=== PATIENT | male | born 1945 | race Caucasian/White ===

== ENCOUNTER 2020-01-22 19:46 | Inpatient (IN) ==
[2020-01-22 20:35] LABS: POC Blood Urea Nitrogen 25 mg/dl (8-23); POC CO2 22 mmol/L (22-30); POC Calcium, Ionized 1.29 mmol/L (1.16-1.32); POC Chloride 108 mmol/L (96-108); POC Glucose, Random 103 mg/dL (70-105); POC Potassium 3.9 mmol/L (3.3-5.1); POC Sodium 142 mmol/L (133-145)
[2020-01-22 20:37] LABS: POC INR 1.1 (0.9-1.2)
[2020-01-22 20:51] LABS: Basophils # (Auto) 0.04 K/mcL (0.00-0.30); Basophils % (Auto) 0.4 % (0.0-2.0); Eosinophils # (Auto) 0.35 K/mcL (0.00-0.70); Eosinophils % (Auto) 3.9 % (0.0-7.0); Granulocytes % (Auto) 73.4 % (38.0-78.0); Hematocrit 36.9 % (40.1-51.0); Hemoglobin 12.3 g/dL (13.7-17.5); Lymphocytes # (Auto) 1.29 K/mcL (1.50-4.80); Lymphocytes % (Auto) 14.4 % (15.5-49.0); Mean Cell Volume 98.1 fL (80.0-100.0); Mean Corpuscular HGB Conc 33.3 g/dL (31.0-36.0); Mean Platelet Volume 9.5 fL (7.4-10.4); Monocytes # (Auto) 0.71 K/mcL (0.10-0.90); Monocytes % (Auto) 7.9 % (1.0-12.0); Platelet Count 202 K/mcL (140-440); RBC 3.76 M/mcL (4.63-6.08); Red Cell Distribution Width 12.4 % (11.5-14.5)
[2020-01-22 21:12] LABS: Chloride 105 mmol/L (96-108)
[2020-01-22 21:16] LABS: ALT/SGPT 22 U/l (0-40); AST/SGOT 24 U/l (0-37); Albumin 3.8 gm/dL (3.2-5.2); Albumin/Globulin Ratio 1.6 (1.0-2.3); Alkaline Phosphatase 91 U/L (39-117); Bilirubin,Total 0.2 mg/dL (0.0-1.0); Blood Urea Nitrogen 23 mg/dl (8-23); Calcium 9.8 mg/dl (8.6-10.4); Carbon Dioxide 21 mmol/L (22-30); Globulin 2.4 gm/dL (2.2-3.7); Glomerular Filtration Rate 34; Glucose 139 mg/dL (70-105)
--- NOTE | 2020-01-22 22:26 | Emergency Department Note ---
Neuro HPI General Chief Complaint: Neuro Symptoms/Deficit Stated Complaint: neurological symptoms/fall Time Seen by Provider: 01/22/20 20:19 Source: patient Mode of arrival: ambulatory Limitations: no limitations History of Present Illness HPI Narrative: Patient describes feeling unstable and dizzy somewhere around 6 hours today. He was told that he looked like he had a droopy eyelid. He fell and it was very difficult to get up including some soreness in his right hand. He was quite weak and unstable. He reports several days ago being seen for similar but his hands seem to be poorly controllable such that his cell phone would easily slide out of his hands and he could hardly touch the keys without putting them on the bed or a firmer surface. He is being worked up/treated for Parkinson's. He reports that it seemed like his right leg is weaker today than usual and this began since he woke up around 5:30 AM. He went to bed around 1030 without this. Later he reports that he has had episodes off and on of his legs being weak particularly his right leg. He uses a walker and often he will use it for 10 to 15 minutes in the morning and then it is better enough that he can go without the walker. Other days he has to use it quite a bit longer. 2 days ago he was seen here because of the hand weakness described above and had labs done then. He admits to some sense of confusion. His mouth is felt dry but he says that he drinks a lot of liquid including 16 ounces of orange juice in the morning a cup of coffee, a glass of milk, toast, and water and soda during the day. He also reports taking ibuprofen 3 in the morning and 3 in the evening ever since his back surgery. On Anticoagulants: Yes Related Data Home Medications Medication Instructions Recorded Confirmed gabapentin 200 mg PO BID 01/22/20 01/22/20 lithium carbonate 450 mg PO BID 01/22/20 01/22/20 methocarbamol 750 mg PO QID 01/22/20 01/22/20 oxycodone 5 mg PO Q6H PRN 01/22/20 01/22/20 Allergies Allergy/AdvReac Type Severity Reaction Status Date / Time No Known Drug Intolerances Allergy Unknown Unverified 01/06/15 17:48 Review of Systems ROS Narrative: No other volunteered abnormalities or problems of major symptoms reported. FOR[facility]LY [facility], [facility] Medical/Surgical/Family History All Active Problems (Updated 01/22/20 @ 22:59 by Brannon Ortiz DO) Chronic low back pain (Acute) Failed back surgical syndrome (Acute) History of TIA (transient ischemic attack) (Acute) Chronic anticoagulation (Chronic) P[place]bl[place] use (Chronic) Bipolar disorder (Chronic) Morbid obesity (Chronic) Hypertension, essential (Chronic) Tremor (Acute) Complaints of weakness of lower extremity (Acute) Fall (Acute) Acute confusion (Acute) Acute renal failure (ARF) (Acute) Edema, peripheral (Chronic) Medical History (Updated 01/22/20 @ 22:59 by Brannon Ortiz DO) Bipolar disorder (Chronic) Chronic anticoagulation (Chronic) clopidogrel Chronic low back pain (Acute) Failed back surgical syndrome (Acute) History of TIA (transient ischemic attack) (Acute) Hypertension, essential (Chronic) [place] use (Chronic) Morbid obesity (Chronic) Surgical History (Updated 01/22/20 @ 22:59 by Brannon Ortiz DO) History of lumbar surgery (Acute) Social History Smoking Status: Never smoker Exam General Limitations: no limitations General appearance: alert, in no apparent distress and nontoxic Head Head: atraumatic and normocephalic Eye Eye: Present EOMI Chest Chest: Present symmetric chest wall rise Respiratory Respiratory: Present normal lung sounds bilaterally; Absent respiratory distress, wheezes, stridor, accessory muscle use and prolonged expiratory phase Cardiovascular Cardiovascular: Present regular rate and normal rhythm; Absent systolic murmur and diastolic murmur Adbominal Abdominal: Present soft; Absent distention, tenderness, guarding, rebound, rigidity, organomegaly and mass Extremities Extremities: Present pedal edema (2-3/4 bilateral) and pretibial edema (2/4 right, 2-3/4 left (more severe).); Absent calf tenderness and cyanosis Neurological Neurological: Present alert, oriented X3 and other (At times he did not always seem to be able to fully answer questions. Was confused some about medications and what they were for.) Psychiatric Psychiatric: Present polite and pleasant; Absent depressed, agitated, anxious and poor eye contact Skin Skin: Present warm and dry Course Vital Signs Vital signs: Vital Signs Temperature 100.1 F H 01/22/20 19:48 Pulse Rate 97 H 01/22/20 19:48 Respiratory Rate 16 01/22/20 19:48 Blood Pressure 125/89 01/22/20 19:48 Pulse Oximetry (%) 97 01/22/20 19:48 Temperature 100.1 F H 01/22/20 19:48 Pulse Rate 82 01/22/20 22:02 Respiratory Rate 17 01/22/20 22:02 Blood Pressure 140/84 01/22/20 22:02 Pulse Oximetry (%) 98 01/22/20 22:02 MDM MDM Narrative Medical decision making narrative: 7:54 PM - patient interviewed and examined. With slow getting the history because of difficulties getting patient to fully explain and not be tangential or distracted or answering different than the content of the question, finally arranged at new onset or increased weakness of the right lower extremity sometime between 1030 last night and 530 this morning necessitating code stroke protocols. CT was read as negative. 8:19 PM - I spoke with Dr. Antony, stroke neurologist, who agrees with no TPA and an MRI is not useful in the circumstances. Patient's clinical scenario is unlikely to demonstrate large vessel thrombus and CT angio than his not of major benefit. An ultrasound would be just as useful and suggest admission for additional stroke work-up and ultrasound. 10:10 PM - creatinine 1.9, 2 days ago 1.6. Hemoglobin 12.3 days, hematocrit 36.9 which is similar. Patient gives the history of some up-and-down weakness, variable to his right lower extremity. He indicates some degrees of confusion. He clarifies his medications to include: * Valsartan * Amlodipine * Clopidogrel * Furosemide * Omeprazole * Oxybutynin * Methocarbamol 750 mg * Gabapentin 200 mg 3 times a day * Oxycodone 5 mg which he takes once or twice daily I believe. * Puebl[place] 450 twice daily for bipolar disorder. * Ibuprofen 600 mg twice daily. 10:40 PM - I just spoke with Dr. Geremias Leon, hospitalist who is agreeable to admit this patient due to the circumstances of probable or possible stroke, patient lives alone and recent fall, confusion, worsening renal function, etc. P[place]bl[place] level added to his labs. Ultrasound of the carotid arteries ordered. Of note is recently had TSH that was normal at 2.63. Lab Data Result diagrams: 01/22/20 20:11 01/22/20 20:25 Labs: Lab Results 06/19/20 06/19/20 06/19/20 Range/Units 20:10 20:11 20:20 WBC 9.0 (4.50-11.00) K/mcL RBC 3.76 L (4.63-6.08) M/mcL Hgb 12.3 L (13.7-17.5) g/dL Hct 36.9 L (40.1-51.0) % POC Hct (41.0-55.0) % MCV 98.1 (80.0-100.0) fL MCH 32.7 (26.0-34.0) pg MCHC 33.3 (31.0-36.0) g/dL RDW 12.4 (11.5-14.5) % Plt Count 202 (140-440) K/mcL MPV 9.5 (7.4-10.4) fL Gran % 73.4 (38.0-78.0) % Lymph % (Auto) 14.4 L (15.5-49.0) % Finney % (Auto) 7.9 (1.0-12.0) % Eos % (Auto) 3.9 (0.0-7.0) % Baso % (Auto) 0.4 (0.0-2.0) % Gran # 6.59 (1.80-8.00) K/mcL Lymph # (Auto) 1.29 L (1.50-4.80) K/mcL Finney # (Auto) 0.71 (0.10-0.90) K/mcL Eos # (Auto) 0.35 (0.00-0.70) K/mcL Baso # (Auto) 0.04 (0.00-0.30) K/mcL POC PT 13.0 (11.9-14.5) sec POC INR 1.1 (0.9-1.2) APTT 31 (20-37) sec POC Sodium (133-145) mmol/L Sodium (133-145) mmol/L POC Potassium (3.3-5.1) mmol/L Potassium (3.3-5.1) mmol/L POC Chloride (96-108) mmol/L Chloride (96-108) mmol/L Carbon Dioxide (22-30) mmol/L POC Total CO2 (22-30) mmol/L Anion Gap (8-16) POC BUN (8-23) mg/dl BUN (8-23) mg/dl Creatinine (0.7-1.2) mg/dl POC Creatinine (0.7-1.2) mg/dl GFR Calculation Glucose (70-105) mg/dL POC Glucose (70-105) mg/dL Calcium (8.6-10.4) mg/dl POC WB Ioniz Calcium (1.16-1.32) mmol/L Total Bilirubin (0.0-1.0) mg/dL AST (0-37) U/l ALT (0-40) U/l Alkaline Phosphatase (39-117) U/L Troponin T < 0.01 (0-0.03) ng/ml Total Protein (5.9-8.4) gm/dL Albumin (3.2-5.2) gm/dL Globulin (2.2-3.7) gm/dL Albumin/Globulin Ratio (1.0-2.3) /19/20 Range/Units 20:25 WBC (4.50-11.00) K/mcL RBC (4.63-6.08) M/mcL Hgb (13.7-17.5) g/dL Hct (40.1-51.0) % POC Hct 35.0 L (41.0-55.0) % MCV (80.0-100.0) fL MCH (26.0-34.0) pg MCHC (31.0-36.0) g/dL RDW (11.5-14.5) % Plt Count (140-440) K/mcL MPV (7.4-10.4) fL Gran % (38.0-78.0) % Lymph % (Auto) (15.5-49.0) % Finney % (Auto) (1.0-12.0) % Eos % (Auto) (0.0-7.0) % Baso % (Auto) (0.0-2.0) % Gran # (1.80-8.00) K/mcL Lymph # (Auto) (1.50-4.80) K/mcL Finney # (Auto) (0.10-0.90) K/mcL Eos # (Auto) (0.00-0.70) K/mcL Baso # (Auto) (0.00-0.30) K/mcL POC PT (11.9-14.5) sec POC INR (0.9-1.2) APTT (20-37) sec POC Sodium 142 (133-145) mmol/L Sodium 136 (133-145) mmol/L POC Potassium 3.9 (3.3-5.1) mmol/L Potassium 4.2 (3.3-5.1) mmol/L POC Chloride 108 (96-108) mmol/L Chloride 105 (96-108) mmol/L Carbon Dioxide 21 L (22-30) mmol/L POC Total CO2 22 (22-30) mmol/L Anion Gap 10.0 (8-16) POC BUN 25 H (8-23) mg/dl BUN 23 (8-23) mg/dl Creatinine 1.9 H (0.7-1.2) mg/dl POC Creatinine 2.0 H (0.7-1.2) mg/dl GFR Calculation 34 Glucose 139 H (70-105) mg/dL POC Glucose 103 (70-105) mg/dL Calcium 9.8 (8.6-10.4) mg/dl POC WB Ioniz Calcium 1.29 (1.16-1.32) mmol/L Total Bilirubin 0.2 (0.0-1.0) mg/dL AST 24 (0-37) U/l ALT 22 (0-40) U/l Alkaline Phosphatase 91 (39-117) U/L Troponin T (0-0.03) ng/ml Total Protein 6.2 (5.9-8.4) gm/dL Albumin 3.8 (3.2-5.2) gm/dL Globulin 2.4 (2.2-3.7) gm/dL Albumin/Globulin Ratio 1.6 (1.0-2.3) Discharge Plan Patient/Caregiver Discharge Instructions Pt seen by [facility] ARCHITECT/PA only: No Clinical Impression: Complaints of weakness of lower extremity, Acute confusion, Edema, peripheral Fall Qualifiers: Encounter type: initial encounter Qualified Code(s): W19.XXXA - Unspecified fall, initial encounter Acute renal failure (ARF) Qualifiers: Acute renal failure type: unspecified Qualified Code(s): N17.9 - Acute kidney failure, unspecified Prescriptions: No Action lithium carbonate 450 mg Tablet Extended Release 450 mg PO BID RF: 0 methocarbamol 750 mg Tablet 750 mg PO QID RF: 0 gabapentin 100 mg Capsule 200 mg PO BID RF: 0 oxycodone 5 mg Tablet 5 mg PO Q6H PRN (Reason: Pain) RF: 0 Follow up with: Hollie Abreu ARNP [Primary Care Provider] - Patient Disposition: Xfer As Inpt ([facility])
[2020-01-22] MEDS ORDERED: LACTATED RINGERS 1,000 ML IV ONE (22:38)
[2020-01-22] MEDS ORDERED: ASPIRIN 325 MG ENTERIC COATED TABLET PO ONE (22:43)
[2020-01-22] MEDS ORDERED: ASPIRIN 81 MG TAB.CHEW CHEWED ONE (22:49)
--- NOTE | 2020-01-22 23:05 | Internal Med History&Physical ---
HPI History of Present Illness Patient information: Note initiated : 01/22/20 at 10:54 pm Service Date, if different from initiated Date: [] Patient: Koby Ayers 74 y/o M admitted on for neurological symptoms/fall. Chief Complaint: [] History of present illness: Mr. Ayers is a 74 year old M Presents the ED with generalized weakness and also worsening weakness of his right lower extremity. He is felt a little confused. His friend told him his left eyelid was droopy and at one point he was not making sense and he stopped to think if did relay that he was jumbling his words. He felt foggy. He fell at one point. [place] a little unsteady on his feet. Very difficult to for him to get up when he fell. Currently is being worked up for Parkinson's has appointment with a neurologist but has not seen Dr. Mason yet. Last felt normal was last night. Symptoms have been going on for about 24 hours. Does use a walker at home. CT brain was unremarkable. Dates as discussed with stroke neurologist Dr. Paul mueller from [place]. Recommendations only for carotid ultrasound and echocardiogram. And patient did have a high ABCD score and acute kidney injury and thus admission was requested. Review of Systems: Pertinent positives above. Denies headache/fever/chills/nausea/vomiting/chest or abdominal pain/cough/dyspnea/diarrhea. 10 point review of system reviewed negative Medical history: Tremor (ICD-781.0) (ZUE15-I16.1) Cough (ICD-786.2) (SGB42-O86) Body mass index (BMI) 40.0-44.9, adult (ICD-V85.41) (YVG27-E20.41) Morbid (severe) obesity due to excess calories (ICD-278.01) (MMZ05-S93.01) Depression, initial episode (ICD-311) (ZGO60-H59.9) Blurring of visual image (ICD-368.8) (TTU75-Q41.8) Low back pain, chronic (ICD-724.2) (MLL93-A30.5) Plantar fasciitis, right (ICD-728.71) (CRJ30-P89.2) Plantar fasciitis, left (ICD-728.71) (JIQ22-R94.2) Equinus contracture of the ankle (ICD-718.47) (VNG31-W58.573) Equinus deformity of foot, acquired (ICD-736.72) (OKT04-Z83.6x9) Calcaneal spur of right foot (ICD-726.73) (VIY46-C21.31) Osteoarthritis (ICD-715.90) (TSA45-Q22.90) Other instability, right foot (ICD-718.87) (ABO78-X51.374) Lower extremity edema (ICD-782.3) (FFV41-Q70.0) Obesity (ICD-278.00) (TFB00-B76.9) RESTLESS LEG SYNDROME (ICD-333.94) (QDR53-R86.81) Arthritis (ICD-716.90) (DKS46-D70.90) Renal insufficiency, chronic (ICD-585.9) (KUP57-Q26.9) Hyperglycemia (ICD-790.29) (GUZ31-C55.9) HYPERTENSION (ICD-401.9) (BKP09-A69) BLADDER DYSFUNCTION (ICD-596.59) (OWR71-J84.9) INSOMNIA (ICD-780.52) (MER24-J48.00) DISORDER, BIPOLAR NEC (ICD-296.89) (MSF07-D59.81) ADENOCARCINOMA, PROSTATE (ICD-185) (UOU86-O35) SLEEP APNEA (ICD-780.57) (JXE78-W58.30) IBS (ICD-564.1) (RBT95-X42.9) Pterygium, bilateral (ICD-372.40) (ODF98-B19.003) Peripheral edema Past surgical history: Prostate surgery Lumbar surgery Cholecystectomy Total knee arthroplasty Shoulder surgery Family history Mother had jaw cancer Father had cancer Social history: Patient denies tobacco or alcohol Ambulates with walker Lives by himself [facility] Medical History (Updated 01/22/20 @ 22:59 by Brannon Ortiz DO) Bipolar disorder (Chronic) Chronic anticoagulation (Chronic) clopidogrel Chronic low back pain (Acute) Failed back surgical syndrome (Acute) History of TIA (transient ischemic attack) (Acute) Hypertension, essential (Chronic) [facility] use (Chronic) Morbid obesity (Chronic) Surgical History (Updated 06/19/20 @ 22:59 by Brannon Ortiz DO) History of lumbar surgery (Acute) Social History smoking status: Never smoker MEDS/ALLERGIES Home Medications and Allergies Home Medications Medication Instructions Recorded Confirmed Type gabapentin 200 mg PO BID 01/22/20 01/22/20 History lithium carbonate 450 mg PO BID 01/22/20 01/22/20 History methocarbamol 750 mg PO QID 01/22/20 01/22/20 History oxycodone 5 mg PO Q6H PRN 01/22/20 01/22/20 History Allergies Allergy/AdvReac Type Severity Reaction Status Date / Time No Known Drug Intolerances Allergy Unknown Unverified 01/06/15 17:48 EXAM Constitutional Vitals: Temp Pulse Resp BP Pulse Ox 100.1 F H 82 17 140/84 98 01/22/20 19:48 01/22/20 22:02 01/22/20 22:02 01/22/20 22:02 01/22/20 22:02 Exam: General: Alert, Awake, No acute Distress, obese Eyes/N/T: EOMI, PERRL, dry MM Head/Neck: neck supple, normocephalic atraumatic CV: RRR, No murmurs, normal s1/s2 Pulm: Clear b/l, no wheezing/rhonchi/rales Abd: soft, nontender, +BS x4 Ext: no clubbing/cyanosis, b/l LE 3+ Neuro: Alert, RLE weaker than left but chronic also, CN 2-12 grossly intact, sensations intact b/l upper/lower, no pronator drift, face symmetrical, speech clear Skin: warm/dry DATA Data Completed and Pending Labs on day of discharge: Labs from last 24 hours 01/22/20 01/22/20 01/22/20 20:25 20:25 20:20 WBC RBC Hgb Hct POC Hct 35.0 L MCV MCH MCHC RDW Plt Count MPV Gran % Lymph % (Auto) Gage % (Auto) Eos % (Auto) Baso % (Auto) Gran # Lymph # (Auto) Gage # (Auto) Eos # (Auto) Baso # (Auto) POC PT 13.0 POC INR 1.1 APTT 31 POC Sodium 142 Sodium 136 POC Potassium 3.9 Potassium 4.2 POC Chloride 108 Chloride 105 Carbon Dioxide 21 L POC Total CO2 22 Anion Gap 10.0 POC BUN 25 H BUN 23 Creatinine 1.9 H POC Creatinine 2.0 H GFR Calculation 34 Glucose 139 H POC Glucose 103 Calcium 9.8 POC WB Ioniz Calcium 1.29 Total Bilirubin 0.2 AST 24 ALT 22 Alkaline Phosphatase 91 Troponin T Total Protein 6.2 Albumin 3.8 Globulin 2.4 Albumin/Globulin Ratio 1.6 [facility] Pending 01/22/20 01/22/20 20:11 20:10 WBC 9.0 RBC 3.76 L Hgb 12.3 L Hct 36.9 L POC Hct MCV 98.1 MCH 32.7 MCHC 33.3 RDW 12.4 Plt Count 202 MPV 9.5 Gran % 73.4 Lymph % (Auto) 14.4 L Gage % (Auto) 7.9 Eos % (Auto) 3.9 Baso % (Auto) 0.4 Gran # 6.59 Lymph # (Auto) 1.29 L Gage # (Auto) 0.71 Eos # (Auto) 0.35 Baso # (Auto) 0.04 POC PT POC INR APTT POC Sodium Sodium POC Potassium Potassium POC Chloride Chloride Carbon Dioxide POC Total CO2 Anion Gap POC BUN BUN Creatinine POC Creatinine GFR Calculation Glucose POC Glucose Calcium POC WB Ioniz Calcium Total Bilirubin AST ALT Alkaline Phosphatase Troponin T < 0.01 Total Protein Albumin Globulin Albumin/Globulin Ratio [facility] A/P Narrative A/P Narrative: A: *TIA vs: -ABCD=5 -CT brain neg *BRIT on CKD II: *Depression/bipolar: On lithium and duloxetine *JUSTINE with CPAP: *Obesity: *HTN: *Peripheral edema: *Chronic low back pain * * P: -IVF, follow-up renal function -Plavix/Statin -Carotid ultrasound and echocardiogram pending -Check lithium level -Hold Lasix and ARB for BRIT -Clarify home medications and update system -lipid panel -Compression wraps and elevate legs -CPAP - -f/u with neurologist as scheduled -PT/OT -ppx: Lovenox/home PPI DNR Time Spent With Patient Time: Total time spent is greater than 50% in coordination of care (as documented) at patient's floor/unit and/or counseling patient:
[2020-01-22 23:13] LABS: Lithium Test 0.9 mmol/L
[2020-01-23] MEDS ORDERED: POLYETHYLENE GLYCOL 3350 17 GM PACKET PO PRN (00:04)
[2020-01-23] MEDS ORDERED: 0.9 % SODIUM CHLORIDE 1,000 ML IV SCH ×2 (00:04→08:15)
[2020-01-23] MEDS ORDERED: POTASSIUM CHLORIDE 40 MEQ in DEXTROSE 5% IN WATER 500 ML IV PRN (00:04)
[2020-01-23] MEDS ORDERED: IPRATROPIUM/ALBUTEROL 3 ML AMPUL.NEB NEB PRN (00:04)
[2020-01-23] MEDS ORDERED: SENNOSIDES 1 TABLET PO PRN (00:04)
[2020-01-23] MEDS ORDERED: MAGNESIUM SULFATE 2 GM/50 ML BAG IV PRN (00:04)
[2020-01-23] MEDS ORDERED: ACETAMINOPHEN 325 MG TABLET PO PRN (00:04)
[2020-01-23] MEDS ORDERED: ONDANSETRON 4 MG/2 ML VIAL IV PRN (00:04)
[2020-01-23] MEDS ORDERED: POTASSIUM CHLORIDE 20 MEQ TABLET PO PRN ×2 (00:04)
[2020-01-23] MEDS ORDERED: PROMETHAZINE 25 MG/ML VIAL IV PRN (00:04)
[2020-01-23 01:37] LABS: HDL Cholesterol 41 mg/dl (>40); LDL Cholesterol,Calculated 98 mg/dl (SEE CHART); Non-HDL Cholesterol 129 (LDL TARGET+30); Triglycerides 157 mg/dl (<150)
[2020-01-23 04:10] LABS: Appearance,Urine CLEAR; Bilirubin,Urine NEG (NEG); Color,Urine COLORLESS; Culture Indicated,Urine NO; Glucose,Urine (UA) NEGATIVE (NEG); Ketones,Urine NEG (NEG); Leukocyte Esterase,Urine NEG /uL (NEG); Nitrate,Urine NEG (NEG); Protein,Urine NEG (NEG); Specific Gravity,Urine 1.005 (1.000-1.035); Urine Blood NEG mg/dL (<0.03); Urobilinogen,Urine NEG (NEG)
[2020-01-23] MEDS ORDERED: ONDANSETRON 4 MG/2 ML VIAL ONE (05:28)
--- NOTE | 2020-01-23 05:38 | Ultrasound Report ---
INDICATION: TIA symptoms COMPARISON: None. TECHNIQUE: Carotid arteries were imaged in sagittal and transverse planes using 5 mHz linear probe: Doppler, color, and 2D. FINDINGS: Mild atherosclerotic plaque and intimal thickening in the distal common carotid artery and proximal internal carotid artery bilaterally. Plaque is heterogeneous. No evidence for ulceration. No flow disturbance. No significant turbulence or velocity elevation. There is no stenosis. Maximum Systolic Flow Velocity: - Right common carotid artery: 70 cm/sec - Right internal carotid artery: 88 cm/sec - Left common carotid artery: 85 cm/sec - Left internal carotid artery: 103 cm/sec Vertebral arteries antegrade patent. IMPRESSION: 1. Mild bilateral atherosclerotic plaque without flow disturbance 2. No hemodynamically significant stenosis. No evidence for ulceration Interpreted and Authenticated by: Kody Gallardo 01/23/20
--- NOTE | 2020-01-23 05:40 | Cat Scan Report ---
INDICATION: Neuro Deficit/acute stroke COMPARISON: None. TECHNIQUE: Axial noncontrast-enhanced images through the brain. Sagittally and coronally reformatted images. FINDINGS: Examination was initially interpreted by [facility] Cerebral hemispheres:Negative. No intra-axial abnormality. No intra-axial hematoma. No localized mass effect. Brain volume is within normal limits. No hydrocephalus Brainstem and cerebellum:No intra-axial abnormality Extra-axial:No acute hemorrhage. No subdural or epidural hematoma. No subarachnoid hemorrhage. Basilar cisterns are normal Calvarial:No calvarial fracture. No lytic lesion Temporal bones are negative. No destructive lesions Soft tissue:Orbits and visualized facial soft tissues are grossly normal. IMPRESSION: Negative noncontrast enhanced brain CT scan The exam was performed using radiation dose optimization techniques including, but not limited to, automated exposure control, adjustment of the mA and/or kV according to patient size and use of iterative reconstruction technique. Interpreted and Authenticated by: Kody Gallardo 01/23/20
[2020-01-23] MEDS: 0.9 % SODIUM CHLORIDE 10 ML SYRINGE IV SCH ×3 (05:52→21:22)
[2020-01-23 06:52] LABS: Basophils # (Auto) 0.05 K/mcL (0.00-0.30); Basophils % (Auto) 0.7 % (0.0-2.0); Eosinophils # (Auto) 0.39 K/mcL (0.00-0.70); Eosinophils % (Auto) 5.2 % (0.0-7.0); Granulocytes % (Auto) 66.7 % (38.0-78.0); Hemoglobin 12.1 g/dL (13.7-17.5); Lymphocytes % (Auto) 18.8 % (15.5-49.0); Mean Cell Volume 99.2 fL (80.0-100.0); Mean Corpuscular HGB Conc 32.7 g/dL (31.0-36.0); Mean Platelet Volume 9.3 fL (7.4-10.4); Monocytes # (Auto) 0.64 K/mcL (0.10-0.90); Monocytes % (Auto) 8.6 % (1.0-12.0); Platelet Count 191 K/mcL (140-440); RBC 3.73 M/mcL (4.63-6.08); Red Cell Distribution Width 12.3 % (11.5-14.5); WBC 7.4 K/mcL (4.50-11.00)
[2020-01-23 07:25] LABS: ALT/SGPT 20 U/l (0-40); AST/SGOT 19 U/l (0-37); Albumin 3.4 gm/dL (3.2-5.2); Albumin/Globulin Ratio 1.3 (1.0-2.3); Alkaline Phosphatase 83 U/L (39-117); Bilirubin,Direct < 0.2 mg/dL (0.0-0.3); Bilirubin,Total 0.3 mg/dL (0.0-1.0); Blood Urea Nitrogen 20 mg/dl (8-23); Calcium 10.3 mg/dl (8.6-10.4); Carbon Dioxide 24 mmol/L (22-30); Globulin 2.6 gm/dL (2.2-3.7); Glomerular Filtration Rate 39; Glucose 102 mg/dL (70-105); Lactate Dehydrogenase 150 U/L (94-250); Phosphorous 2.8 mg/dL (2.7-4.5); Triglycerides 119 mg/dl (<150); Uric Acid 6.5 mg/dL (2.5-8.0)
[2020-01-23 07:30] LABS: Chloride 111 mmol/L (96-108)
[2020-01-23] MEDS: PANTOPRAZOLE 40 MG TABLET PO SCH (08:00)
--- NOTE | 2020-01-23 08:08 | Internal Med Progress Note ---
SUBJECTIVE Subjective Patient information: Note initiated : 01/23/20 at 8:01 am Service Date, if different from initiated Date: [] Patient: Koby Ayers 74 y/o M admitted on 01/22/20 for neurological symptoms/fall. Chief Complaint: [] History of present illness: Mr. Ayers is a 74 year old M Presents the ED with generalized weakness and also worsening weakness of his right lower extremity. He is felt a little confused. His friend told him his left eyelid was droopy and at one point he was not making sense and he stopped to think if did relay that he was jumbling his words. He felt foggy. He fell at one point. [place] a little unsteady on his feet. Very difficult to for him to get up when he fell. Currently is being worked up for Parkinson's has appointment with a neurologist but has not seen Dr. Mason yet. Last felt normal was last night. Symptoms have been going on for about 24 hours. Does use a walker at home. CT brain was unremarkable. Dates as discussed with stroke neurologist Dr. Paul mueller from [place]. Recommendations only for carotid ultrasound and echocardiogram. And patient did have a high ABCD score and acute kidney injury and thus admission was requested. 01/22 Poor sleep first night. Constipation. Creatinine mildly decreased. Patient does feel his leg weakness is better. Blood pressure elevated overnight. Allow permissive elevation given likely TIA. Review of Systems: denies headache/fever/chills/nausea/vomiting/chest or abdominal pain/c ough/dyspnea/diarrhea. Otherwise see above. Constitutional Vitals: Vital Signs Temp Pulse Resp BP Pulse Ox 98.7 F 80 18 180/109 95 01/23/20 04:01 01/23/20 04:01 01/23/20 04:01 01/23/20 04:01 01/23/20 07:33 Period Temp Pulse Resp BP Sys/Coker Pulse Ox Last 24 Hr 97.8 F-100.1 F 78-97 10-34 116-180/79-114 93-100 Intake and Output 01/22/20 01/23/20 01/23/20 21:59 05:59 13:59 Intake Total 1000 Output Total 2300 700 Balance -1300 -700 Weight 131.542 kg 131.542 kg Intake & Output: Intake & Output 01/22/20 01/23/20 01/23/20 21:59 05:59 13:59 Intake Total 1000 Output Total 2300 700 Balance -1300 -700 Weight 131.542 kg 131.542 kg Intake: IV 1000 Lactated Ringers 1,000 ml @ 1000 Wide Open IV BOLUS ONE Rx#: [id number] Output: Void Amount 2300 700 Exam: Exam: General: Alert, Awake, No acute Distress, obese Eyes/N/T: EOMI, Head/Neck: neck supple, CV: RRR, No murmurs, Pulm: Clear b/l, no wheezing/rhonchi/rales Abd: soft, nontender, +BS x4 Ext: no clubbing/cyanosis, b/l LE 3+ Neuro: Alert, RLE weaker than left but chronic also, no pronator drift, face symmetrical, speech clear Skin: warm/dry OBJ DATA Labs CBC & Chem 7: 01/23/20 04:59 01/23/20 04:59 Labs: Abnormal Lab Results 01/23/20 01/23/20 01/22/20 04:59 04:59 20:25 RBC 3.73 L Hgb 12.1 L Hct 37.0 L POC Hct Lymph % (Auto) Lymph # (Auto) 1.40 L Chloride 111 H Carbon Dioxide POC BUN Creatinine 1.7 H POC Creatinine Glucose Triglycerides 157 H 01/22/20 01/22/20 20:25 20:11 RBC 3.76 L Hgb 12.3 L Hct 36.9 L POC Hct 35.0 L Lymph % (Auto) 14.4 L Lymph # (Auto) 1.29 L Chloride Carbon Dioxide 21 L POC BUN 25 H Creatinine 1.9 H POC Creatinine 2.0 H Glucose 139 H Triglycerides Meds: Medications Acetaminophen (Tylenol) 650 mg PO Q6HP PRN PRN Reason: PAIN/FEVER > 101 Albuterol/Ipratropium (Duoneb) 3 ml NEB Q4HP PRN PRN Reason: Shortness Of Breath Aspirin (Aspirin) 81 mg CHEWED DAILY [facility] Atorvastatin Calcium (Lipitor) 80 mg PO HS [facility] Clopidogrel Bisulfate (Plavix) 75 mg PO DAILY [facility] Docusate Sodium (Colace) 100 mg PO BID [facility] Enoxaparin Sodium (Lovenox) 40 mg SQ DAILY [facility] Gabapentin (Neurontin) 200 mg PO BID [facility] Potassium Chloride 40 meq/ (Dextrose) 520 mls @ 130 mls/hr IV UD PRN PRN Reason: Potassium < 3 Magnesium Sulfate (Magnesium Sulfate) 2 gm in 50 mls @ 50 mls/hr IV UD PRN PRN Reason: Magnesium </= 1.6 Sodium Chloride (Sodium Chloride 0.9%) 1,000 mls @ 75 mls/hr IV .[id number] [facility] Stop: 01/23/20 13:23 Last Admin: 01/23/20 00:44 Dose: 75 mls/hr Documented by: [place] Carbonate (Eskalith Cr) 450 mg PO BID [facility] Methocarbamol (Robaxin) 750 mg PO QIDP PRN PRN Reason: spas Ondansetron HCl (Zofran) 4 mg IV Q4HP PRN PRN Reason: Nausea And Vomiting Oxycodone HCl (Roxicodone) 5 mg PO Q6HP PRN; Protocol PRN Reason: Pain Pantoprazole Sodium (Protonix) 40 mg PO QAMAC [facility] Polyethylene Glycol (Miralax) 17 gm PO DAILYP PRN PRN Reason: Constipation Potassium Chloride (Kdur) 40 meq PO UD PRN PRN Reason: Potssium is 3-3.5 Potassium Chloride (Kdur) 40 meq PO UD PRN PRN Reason: Potassium < 3 Promethazine HCl (Phenergan) 12.5 mg IV Q6HP PRN PRN Reason: Nausea And Vomiting Senna (Senokot) 2 tab PO DAILYP PRN PRN Reason: Constipation Sodium Chloride (Saline Flush) 10 ml IV Q8 [facility] Last Admin: 01/23/20 05:52 Dose: Not Given Documented by: A/P Narrative A/P Narrative: A: *TIA/CVA: with acute on chronic right leg weakness (better)/confusion(better) -ABCD=5 -CT brain neg, tele sinus -carotid u/s no significant stenosis *Analyzed weakness/falls/deconditioning: *BRIT on CKD II: -slowly improving *Depression/bipolar: On lithium and duloxetine -lithum wnl *JUSTINE with CPAP: *Obesity: *HTN: *Peripheral edema, chronic: *Chronic low back pain * P: -IVF today, follow-up renal function -Plavix/Statin -echocardiogram pending -Hold Lasix and ARB for BRIT -Clarify home medications and update system -Compression wraps and elevate legs -CPAP - -f/u with neurologist as scheduled -PT/OT -may need SNF upon d/c -ppx: Lovenox/home PPI DNR Time Spent With Patient Time: Total time spent is greater than 50% in coordination of care (as documented) at patient's floor/unit and/or counseling patient: QUALITY VTE Deep Vein Thrombosis/Pulmonary Embolism Present on Admission: No
[2020-01-23] MEDS ORDERED: ASPIRIN 81 MG TAB.CHEW CHEWED SCH (09:00)
[2020-01-23] MEDS ORDERED: LABETALOL 5 MG/ML ML IV PRN (09:12)
[2020-01-23] MEDS: oxyCODONE HCL 5 MG TABLET PO PRN ×3 (09:45→21:22)
[2020-01-23] MEDS: ENOXAPARIN 40 MG/0.4 ML SYRINGE SQ SCH (09:45)
[2020-01-23] MEDS: GABAPENTIN 100 MG CAPSULE PO SCH ×2 (09:45→21:22)
[2020-01-23] MEDS: METHOCARBAMOL 750 MG TABLET PO PRN ×3 (09:45→21:22)
[2020-01-23] MEDS: CLOPIDOGREL 75 MG TABLET PO SCH (09:45)
--- NOTE | 2020-01-23 09:59 | Discharge Summary ---
Discharge Provider Provider Patient information: Note initiated : 01/23/20 at 9:57 am Service Date, if different from initiated Date: [] Patient: Kboy Ayers 74 y/o M admitted on 01/22/20 for neurological symptoms/fall. Chief Complaint: [] Date of admission: 01/22/20 23:44 Discharge date: 01/24/20 Primary care physician: Hollie Abreu Consults: 01/22/20 Consult to Physician [CONS] Stat Comment: Consulting Provider: Geremias Leon Reason For Exam: Physician to Consult Discharge Meds Discharge Medications Active and Home Medications: Home Medications gabapentin 200 mg PO BID 01/22/20 [History Confirmed 01/22/20 Last Taken Unknown] lithium carbonate 450 mg PO BID 01/22/20 [History Confirmed 01/22/20 Last Taken Unknown] methocarbamol 750 mg PO QID 01/22/20 [History Confirmed 01/22/20 Last Taken Unknown] oxycodone 5 mg PO Q6H PRN 01/22/20 [History Confirmed 01/22/20 Last Taken Unknown] COURSE Hospital Course Hospital Course: History of present illness: Mr. Ayers is a 74 year old M Presents the ED with generalized weakness and also worsening weakness of his right lower extremity. He is felt a little confused. His friend told him his left eyelid was droopy and at one point he was not making sense and he stopped to think if did relay that he was jumbling his words. He felt foggy. He fell at one point. [place] a little unsteady on his feet. Very difficult to for him to get up when he fell. Currently is being worked up for Parkinson's has appointment with a neurologist but has not seen Dr. Mason yet. Last felt normal was last night. Symptoms have been going on for about 24 hours. Does use a walker at home. CT brain was unremarkable. Dates as discussed with stroke neurologist Dr. Paul mueller from [place]. Recommendations only for carotid ultrasound and echocardiogram. And patient did have a high ABCD score and acute kidney injury and thus admission was requested. 01/22 Poor sleep first night. Constipation. Creatinine mildly decreased. Patient does feel his leg weakness is better. Blood pressure elevated overnight. Allow permissive elevation given likely TIA. 01/23 No new complaints overnight events. Patient wanting to discharge. Blood pressure stable. Renal function improved. A/P *TIA/CVA: with acute on chronic right leg weakness (better)/confusion(better) -ABCD=5 -CT brain neg, tele sinus -carotid u/s no significant stenosis -was supposed to f/u with Dr. Mason for parkinson's eval also *Analyzed weakness/falls/deconditioning: *BRIT on CKD II: -slowly improving *Depression/bipolar: On lithium and duloxetine -lithum wnl *JUSTINE with CPAP: *Obesity: *HTN: *Peripheral edema, chronic: *Chronic low back pain Discharge diagnosis: TIA acute kidney injury underlies weakness Secondary discharge diagnosis: Depression bipolar obstructive sleep apnea obesity hypertension peripheral edema chronic low back pain Time Spent with Patient Time attestation: Total time spent providing and/or coordinating discharge servi castro: Time spent: Greater than 30 minutes EXAM Constitutional Vitals: Temp Pulse Resp BP Pulse Ox 98.7 F 80 18 180/109 95 01/23/20 04:01 01/23/20 04:01 01/23/20 04:01 01/23/20 04:01 01/23/20 07:33 Discharge Data Data Completed and Pending Labs on day of discharge: Labs from last 24 hours 01/23/20 01/23/20 01/23/20 04:59 04:59 03:14 WBC 7.4 RBC 3.73 L Hgb 12.1 L Hct 37.0 L POC Hct MCV 99.2 MCH 32.4 MCHC 32.7 RDW 12.3 Plt Count 191 MPV 9.3 Gran % 66.7 Lymph % (Auto) 18.8 [place] % (Auto) 8.6 Eos % (Auto) 5.2 Baso % (Auto) 0.7 Gran # 4.95 Lymph # (Auto) 1.40 L [place] # (Auto) 0.64 Eos # (Auto) 0.39 Baso # (Auto) 0.05 POC PT POC INR APTT POC Sodium Sodium 143 POC Potassium Potassium 3.9 POC Chloride Chloride 111 H Carbon Dioxide 24 POC Total CO2 Anion Gap 8.0 POC BUN BUN 20 Creatinine 1.7 H POC Creatinine GFR Calculation 39 Glucose 102 POC Glucose Uric Acid 6.5 Calcium 10.3 POC WB Ioniz Calcium Phosphorus 2.8 Magnesium 2.5 Total Bilirubin 0.3 Direct Bilirubin < 0.2 GGT 13 AST 19 ALT 20 Alkaline Phosphatase 83 Lactate Dehydrogenase 150 Troponin T Total Protein 6.0 Albumin 3.4 Globulin 2.6 Albumin/Globulin Ratio 1.3 Triglycerides 119 Cholesterol LDL Cholesterol, Calc Non-HDL Cholesterol HDL Cholesterol Urine Color Colorless Urine Appearance Clear Urine pH 7.0 Ur Specific [place] 1.005 Urine Protein Neg Urine Glucose (UA) Negative Urine Ketones Neg Urine Occult Blood Neg Urine Nitrate Neg Urine Bilirubin Neg Urine Urobilinogen Neg Ur Leukocyte Esterase Neg Ur Culture Indicated? No [place] 01/22/20 01/22/20 01/22/20 20:25 20:25 20:25 WBC RBC Hgb Hct POC Hct 35.0 L MCV MCH MCHC RDW Plt Count MPV Gran % Lymph % (Auto) [place] % (Auto) Eos % (Auto) Baso % (Auto) Gran # Lymph # (Auto) [place] # (Auto) Eos # (Auto) Baso # (Auto) POC PT POC INR APTT POC Sodium 142 Sodium 136 POC Potassium 3.9 Potassium 4.2 POC Chloride 108 Chloride 105 Carbon Dioxide 21 L POC Total CO2 22 Anion Gap 10.0 POC BUN 25 H BUN 23 Creatinine 1.9 H POC Creatinine 2.0 H GFR Calculation 34 Glucose 139 H POC Glucose 103 Uric Acid Calcium 9.8 POC WB Ioniz Calcium 1.29 Phosphorus Magnesium Total Bilirubin 0.2 Direct Bilirubin GGT AST 24 ALT 22 Alkaline Phosphatase 91 Lactate Dehydrogenase Troponin T Total Protein 6.2 Albumin 3.8 Globulin 2.4 Albumin/Globulin Ratio 1.6 Triglycerides 157 H Cholesterol 170 LDL Cholesterol, Calc 98 Non-HDL Cholesterol 129 HDL Cholesterol 41 Urine Color Urine Appearance Urine pH Ur Specific [place] Urine Protein Urine Glucose (UA) Urine Ketones Urine Occult Blood Urine Nitrate Urine Bilirubin Urine Urobilinogen Ur Leukocyte Esterase Ur Culture Indicated? [place] 0.9 01/22/20 01/22/20 01/22/20 20:20 20:11 20:10 WBC 9.0 RBC 3.76 L Hgb 12.3 L Hct 36.9 L POC Hct MCV 98.1 MCH 32.7 MCHC 33.3 RDW 12.4 Plt Count 202 MPV 9.5 Gran % 73.4 Lymph % (Auto) 14.4 L [place] % (Auto) 7.9 Eos % (Auto) 3.9 Baso % (Auto) 0.4 Gran # 6.59 Lymph # (Auto) 1.29 L [place] # (Auto) 0.71 Eos # (Auto) 0.35 Baso # (Auto) 0.04 POC PT 13.0 POC INR 1.1 APTT 31 POC Sodium Sodium POC Potassium Potassium POC Chloride Chloride Carbon Dioxide POC Total CO2 Anion Gap POC BUN BUN Creatinine POC Creatinine GFR Calculation Glucose POC Glucose Uric Acid Calcium POC WB Ioniz Calcium Phosphorus Magnesium Total Bilirubin Direct Bilirubin GGT AST ALT Alkaline Phosphatase Lactate Dehydrogenase Troponin T < 0.01 Total Protein Albumin Globulin Albumin/Globulin Ratio Triglycerides Cholesterol LDL Cholesterol, Calc Non-HDL Cholesterol HDL Cholesterol Urine Color Urine Appearance Urine pH Ur Specific [place] Urine Protein Urine Glucose (UA) Urine Ketones Urine Occult Blood Urine Nitrate Urine Bilirubin Urine Urobilinogen Ur Leukocyte Esterase Ur Culture Indicated? [place] Discharge Plan Patient/Caregiver Discharge Instructions Activity: as per physical therapy Diet: Cardiac Prescriptions: New atorvastatin 40 mg Tablet 20 mg PO HS Qty: 30 RF: 0 clopidogrel 75 mg Tablet 75 mg PO DAILY Qty: 30 RF: 0 Continued lithium carbonate 450 mg Tablet Extended Release 450 mg PO BID RF: 0 methocarbamol 750 mg Tablet 750 mg PO QID RF: 0 gabapentin 100 mg Capsule 200 mg PO BID RF: 0 oxycodone 5 mg Tablet 5 mg PO Q6H PRN (Reason: Pain) RF: 0 No Action oxybutynin chloride 15 mg Tablet Extended Release 24hr 15 mg PO QDAY RF: 0 omeprazole 40 mg Capsule,Delayed Release(Dr/Ec) 40 mg PO QDAY RF: 0 trazodone 100 mg Tablet 50 mg PO HSP PRN (Reason: Insomnia) RF: 0 amlodipine 10 mg Tablet 5 mg PO QDAY RF: 0 valsartan 320 mg Tablet 320 mg PO QDAY RF: 0 furosemide 20 mg Tablet 20 mg PO QDAY PRN (Reason: Edema) RF: 0 duloxetine 60 mg Capsule,Delayed Release(Dr/Ec) 60 mg PO QHS RF: 0 Follow Up Plan Follow up with: Hollie Abreu ARNP [Primary Care Provider] - Gabriel Mason MD [Physician] - (for TIA, but was also supposed to f/u for parkinson's evaluation) Patient Disposition: Xfer SNF Prognosis: Fair Rehab Potential: Fair I certify that the patient requires SNF services: Yes Overall status at discharge: patient is progressing back to baseline Discharge Orders: Discharge Order (Routine); Ordered 01/24/20 Ordered By: Geremias Leon [facility] VTE Deep Vein Thrombosis/Pulmonary Embolism Present on Admission: No
[2020-01-23] MEDS: DOCUSATE SODIUM 100 MG CAPSULE PO SCH ×2 (12:08→21:22)
[2020-01-23] MEDS: LITHIUM CARBONATE 450 MG TAB.SR.12H PO SCH ×2 (12:09→21:22)
[2020-01-23] MEDS ORDERED: ATORVASTATIN 40 MG TABLET PO SCH (21:00)
[2020-01-24] MEDS: METHOCARBAMOL 750 MG TABLET PO PRN ×2 (02:44→08:36)
[2020-01-24] MEDS: oxyCODONE HCL 5 MG TABLET PO PRN ×2 (02:45→08:36)
[2020-01-24] MEDS: 0.9 % SODIUM CHLORIDE 10 ML SYRINGE IV SCH (05:46)
[2020-01-24 06:33] LABS: Blood Urea Nitrogen 15 mg/dl (8-23); Calcium 10.1 mg/dl (8.6-10.4); Carbon Dioxide 23 mmol/L (22-30); Glomerular Filtration Rate 50; Glucose 116 mg/dL (70-105)
[2020-01-24 06:34] LABS: Chloride 114 mmol/L (96-108)
[2020-01-24] MEDS: PANTOPRAZOLE 40 MG TABLET PO SCH (07:21)
[2020-01-24] MEDS: GABAPENTIN 100 MG CAPSULE PO SCH (08:36)
[2020-01-24] MEDS: ENOXAPARIN 40 MG/0.4 ML SYRINGE SQ SCH (08:36)
[2020-01-24] MEDS: DOCUSATE SODIUM 100 MG CAPSULE PO SCH (08:36)
[2020-01-24] MEDS: CLOPIDOGREL 75 MG TABLET PO SCH (08:36)
[2020-01-24] MEDS: LITHIUM CARBONATE 450 MG TAB.SR.12H PO SCH (08:37)
[2020-01-24] MEDS ORDERED: amLODIPine 5 MG TABLET PO SCH (09:00)
[2020-01-24] MEDS ORDERED: NON FORMULARY MEDICATION 1 DOSE MISCELL (Omeprazole 40 MG) PO SCH (09:00)
[2020-01-24] MEDS ORDERED: OXYBUTYNIN CHLORIDE 5 MG TABLET PO SCH (09:00)
[2020-01-24] MEDS ORDERED: DULoxetine 30 MG CAPSULE PO SCH (21:00)
[2020-01-24] MEDS ORDERED: traZODone HCL 50 MG TABLET PO PRN (21:00)
[2020-01-25] MEDS ORDERED: PANTOPRAZOLE 40 MG TABLET PO SCH (07:30)
== END 2020-01-24 10:35 | DRG 69 ==
LOC: ED 19:46 → ICU 23:44
PROVIDERS: ADMIT Internal Medicine; ATTEND Internal Medicine